=== PATIENT | female | born 1990 | race American Indian/Alaskan Native ===

== ENCOUNTER 2016-06-04 18:44 | Emergency (ER) | payer MEDICAID ==
[2016-06-04 19:14] VITALS: RESP 16; TEMP 98.5
--- NOTE | 2016-06-04 20:14 | ED PDOC ---
Arrival/HPI - General Historian: Patient <Coral Nathan - Last Filed: 06/04/16 22:53> <Angel Johnson - Last Filed: 06/04/16 23:33> - General Chief Complaint: Female Genitourinary Time Seen by Provider: 06/04/16 19:20 - History of Present Illness Narrative History of Present Illness (Text): 06/04/16 20:09 26 year old female, 19 weeks , presents to the emergency department concerned about vaginal mucosal discharge today. Patient explains she is visiting from [place]. Patient reports she had an ultrasound done yesterday which was normal. Denies vaginal bleeding or pain. Denies abdominal pain. no fever/chills. no cp or sob. pt states she called her CHAIN HOOKER and they told to come to the office today but the patient was getting onto an airplane to come to [place] so after she [place] she came to the ER for evaluation. (Coral Nathan) Past Medical History - Provider Review Nursing Documentation Reviewed: Yes - Travel History Have you recently traveled outside w/in the past 3 mons?: No - Infectious Disease Hx of Infectious Diseases: None - Cardiac Hx Cardiac Disorders: No - Pulmonary Hx Asthma: Yes - Neurological Hx Neurological Disorder: No - HEENT Hx HEENT Disorder: No - Renal Hx Renal Disorder: No - Endocrine/Metabolic Hx Endocrine Disorders: No - Hematological/Oncological Hx Blood Disorders: No - Integumentary Hx Dermatological Disorder: No - Musculoskeletal/Rheumatological Hx Musculoskeletal Disorders: No - Gastrointestinal Hx Gastrointestinal Disorders: No - Genitourinary/Gynecological Hx Genitourinary Disorders: No - Psychiatric Hx Psychophysiologic Disorder: No Hx Substance Use: No - Anesthesia Hx Anesthesia: No Hx Anesthesia Reactions: No Hx Malignant Hyperthermia: No <Coral Nathan - Last Filed: 06/04/16 22:53> Family/Social History - Physician Review Nursing Documentation Reviewed: Yes Family/Social History: Unknown Family HX Smoking Status: Never Smoked Hx Alcohol Use: No Hx Substance Use: No <Coral Nathan - Last Filed: 06/04/16 22:53> Allergies/Home Meds <Coral Nathan - Last Filed: 06/04/16 22:53> <Angel Johnson - Last Filed: 06/04/16 23:33> Allergies/Adverse Reactions: Allergies No Known Allergies Allergy (Verified 06/04/16 20:05) Review of Systems - Review of Systems Constitutional: absent: Fatigue, Fevers Eyes: absent: Vision Changes, Eye Pain ENT: absent: Hearing Changes, Sore Throat Respiratory: absent: SOB, Cough Cardiovascular: absent: Chest Pain, Palpitations Gastrointestinal: absent: Abdominal Pain, Constipation, Diarrhea, Nausea, Vomiting Genitourinary Female: Vaginal Discharge (mucosal). absent: Dysuria, Frequency, Hematuria, Vaginal Bleeding Musculoskeletal: absent: Arthralgias, Neck Pain Skin: absent: Rash, Pruritis Neurological: absent: Headache, Dizziness Endocrine: absent: Diaphoresis Hemo/Lymphatic: absent: Easy Bleeding Psychiatric: absent: Depression <Coral Nathan T - Last Filed: 06/04/16 22:53> Physical Exam Vital Signs Reviewed: Yes Temperature: Afebrile Blood Pressure: Normal Pulse: Regular Respiratory Rate: Normal Appearance: Positive for: Well-Appearing, Non-Toxic, Comfortable Pain Distress: None Mental Status: Positive for: Alert and Oriented X 3 - Systems Exam Head: Present: Atraumatic Mouth: Present: Moist Mucous Membranes Neck: Present: Normal Range of Motion Respiratory/Chest: Present: Clear to Auscultation, Good Air Exchange. No: Respiratory Distress, Accessory Muscle Use Cardiovascular: Present: Regular Rate and Rhythm, Normal S1, S2. No: Murmurs Abdomen: Present: Normal Bowel Sounds. No: Tenderness, Distention, Peritoneal Signs Genitourinary/Pelvic Exam: Present: Normal External Genitalia, Vaginal Discharge (minimal white vaginal discharge noted. ), Cervical os Closed, Other ( chaparoned by schuyler hanley [facility]). No: Vaginal Bleeding, Vaginal Lesions, Adenexal Tenderness, Adenexal Mass, Cervical Motion Tendernes, Odor Back: Present: Normal Inspection. No: CVA Tenderness, Midline Tenderness, Paraspinal Tenderness Upper Extremity: Present: Normal ROM Lower Extremity: Present: Normal ROM Neurological: Present: GCS=15, Speech Normal Skin: Present: Warm, Dry, Normal Color. No: Rashes Psychiatric: Present: Alert, Oriented x 3 <Coral Nathan T - Last Filed: 06/04/16 22:53> Vital Signs Temp Pulse Resp BP Pulse Ox 06/04/16 21:44 86 16 105/65 100 06/04/16 20:59 80 16 105/68 100 06/04/16 19:09 98.5 F 87 16 100/62 99 Medical Decision Making <Coral Nathan - Last Filed: 06/04/16 22:53> <Angel Johnson - Last Filed: 06/04/16 23:33> ED Course and Treatment: 06/04/16 23:22 Patient is nontoxic well appearing in no distress. Vital signs are stable, patient complaining of vaginal discharge denies pain. Patient 19 weeks CBC: Wbc:11.6 CMP: wnl Beta hC pt refused additional blood testing for type and screen; there is no vaginal bleeding noted on examination; pt has not had any vaginal bleeding during this . Urinalysis: wnl Ultrasound: FINDINGS: Fetus: Single live intrauterine gestation. Heart rate: heart rate of 158 beats per minute. Presentation: Cephalic. Placenta: Posterior. No placental abruption. Amniotic fluid: Normal. Anatomy: No gross anomaly is appreciated. BIOMETRICS Gestational age by US: Estimated gestational age of 19 weeks 5 days by measurements. EFW: Estimated weight of 306 g. BPD: 4.5 cm, correlating with 19 weeks 4 days. HC: 17.1 cm, correlating with 19 weeks 5 days. AC: 14.3 cm, correlating with 19 weeks 5 days. FL: 3.1 cm, correlating with 19 weeks 5 days. MATERNAL: Uterus: Unremarkable. No myometrial mass. Cervix: No cervical dilatation or effacement. Free fluid: No free fluid. IMPRESSION: 1. Single live intrauterine gestation. 2. Incidental/non-acute findings are described above. Discussed all the results the patient. advised f/u with the router operator within the next 2 days. advised immediate return if symptoms worsen,persist or if new symptoms develop. Impression: vaginal discharge Followup with the accounting representative within the next 2 days Return immediately if symptoms worsen persist or if new symptoms develop: High fevers, heavy bleeding, severe abdominal pain, vomiting, diarrhea, dizziness or weakness or any other concerning symptoms develop. (Coral Nathan) - Lab Interpretations Lab Results: 06/04/16 20:00 06/04/16 20:00 Lab Results 06/04/16 20:00: WBC 11.6 H, RBC 4.04, Hgb 11.2 L, Hct 33.7 L, MCV 83.4, MCH 27.7 , MCHC 33.2, RDW 15.0 H, Plt Count 219, MPV 11.5 H, Gran % 73.4 H, Lymph % (Auto ) 17.9 L, Posey % (Auto) 7.7 H, Eos % (Auto) 0.9 L, Baso % (Auto) 0.1, Gran # 8.55 H, Lymph # 2.1, Posey # 0.9 H, Eos # 0.1, Baso # 0.01, Sodium 135, Potassium 3.4 L, Chloride 102, Carbon Dioxide 24, Anion Gap 12, BUN 8, Creatinine 0.8, Est GFR ( Amer) > 60, Est GFR (Non-Af Amer) > 60, Random Glucose 72, Calcium 8.9, Total Bilirubin 0.4, AST 35, ALT 14, Alkaline Phosphatase 57, Total Protein 7.1, Albumin 3.6, Globulin 3.5, Albumin/Globulin Ratio 1.0 L, Beta HCG, Quant 66845.00 H, Urine Color Yellow, Urine Appearance Clear, Urine pH 6.0, Ur Specific [place] 1.010, Urine Protein Negative, Urine Glucose (UA) Negative, Urine Ketones Negative, Urine Blood Negative, Urine Nitrate Negative, Urine Bilirubin Negative, Urine Urobilinogen 0.2, Ur Leukocyte Esterase Negative - RAD Interpretation Radiology Orders: 06/04/16 20:10 AGE [US] Stat - Scribe Statement The provider has reviewed the documentation as recorded by the Scribe <Coral Nathan - Last Filed: 06/04/16 22:53> - PA / RESIDENTIAL LEASING AGENT / Resident Statement / has reviewed & agrees with the documentation as recorded. <Angel Johnson - Last Filed: 06/04/16 23:33> - Scribe Statement Augusto Woods Provider Scribe Attestation: All medical record entries made by the Scribe were at my direction and personally dictated by me. I have reviewed the chart and agree that the record accurately reflects my personal performance of the history, physical exam, medical decision making, and the department course for this patient. I have also personally directed, reviewed, and agree with the discharge instructions and disposition. (Coral Nathan) Disposition/Present on Arrival - Present on Arrival Any Indicators Present on Arrival: No History of DVT/PE: No History of Uncontrolled Diabetes: No Urinary Catheter: No History of Decub. Ulcer: No History Surgical Site Infection Following: None - Disposition Have Diagnosis and Disposition been Completed?: Yes Disposition Time: 22:53 Patient Plan: Discharge <Coral Nathan - Last Filed: 06/04/16 22:53> <Angel Johnson - Last Filed: 06/04/16 23:33> - Disposition Diagnosis: Vaginal discharge during Disposition: HOME/ ROUTINE Patient Problems: Current Active Problems Problem Status Diagnosed Vaginal discharge during Acute Condition: GOOD Additional Instructions: Follow up with the greens picker within the next 2 days Return if symptoms worsen persist or if new concerning symptoms develop Continue your vitamins daily. Referrals: Francisco Funk [Medical Doctor] - Follow up with primary
[2016-06-04 20:25] LABS: ADD MANUAL DIFF? NO
[2016-06-04 20:57] LABS: ALKALINE PHOSPHATASE 57 U/L (38-133); ALT/SGPT 14 U/L (7-56); AST/SGOT 35 U/L (15-39); BILIRUBIN,TOTAL 0.4 mg/dL (0.2-1.3); BLOOD UREA NITROGEN 8 mg/dL (7-21); CALCIUM 8.9 mg/dL (8.4-10.5); CARBON DIOXIDE 24 mmol/L (21-33); CHLORIDE 102 mmol/L (98-107); GFR AFRICAN-AMERICAN > 60; GLUCOSE,RANDOM 72 mg/dL (70-110); POTASSIUM 3.4 mmol/L (3.6-5.0); SODIUM 135 mmol/L (132-148); TOTAL PROTEIN 7.1 g/dL (5.8-8.3); URINE BILIRUBIN NEGATIVE (NEGATIVE); URINE BLOOD NEGATIVE (NEGATIVE); URINE GLUCOSE (UA) NEGATIVE (NEGATIVE); URINE KETONE NEGATIVE (NEGATIVE); URINE LEUKOCYTE ESTERASE NEGATIVE Leu/uL (NEGATIVE); URINE PROTEIN NEGATIVE mg/dL (<30 mg/dL); URINE UROBILINOGEN 0.2 E.U./dL (<1 E.U./dL)
[2016-06-04 20:59] VITALS: O2SAT 100
[2016-06-04 21:01] LABS: BASO # 0.01 K/mm3 (0.0-2.0); BASO % 0.1 % (0.0-3.0); EOS # 0.1 (0.0-0.7); EOS % 0.9 % (1.5-5.0); GRAN # 8.55 (1.4-6.5); GRAN % 73.4 % (50.0-68.0); HEMATOCRIT 33.7 % (36.0-48.0); LYMPH # 2.1 (1.2-3.4); LYMPH % 17.9 % (22.0-35.0); MEAN CELL VOLUME 83.4 fL (80.0-105.0); MEAN CORPUSCULAR HEMOGLOBIN 27.7 pg (25.0-35.0); MEAN CORPUSCULAR HGB CONC 33.2 g/dl (31.0-37.0); MEAN PLATELET VOLUME 11.5 fl (7.0-11.0); MONO # 0.9 (0.1-0.6); MONO % 7.7 % (1.0-6.0); PLATELET COUNT 219 10^3/uL (120.0-450.0); WHITE BLOOD COUNT 11.6 10^3/ul (4.5-11.0)
[2016-06-04 21:02] LABS: URINE APPEARANCE CLEAR (CLEAR); URINE COLOR YELLOW (YELLOW)
--- NOTE | 2016-06-04 21:22 | US ---
EXAM: US After First Trimester, Transabdominal CLINICAL HISTORY: 26 years old, female; Pain; complicated by abdominal or pelvic pain; Right lower quadrant; Second trimester; Gestational age or lmp: 01/22/2016; ; Additional info: , vaginal discharge today TECHNIQUE: Real-time transabdominal obstetrical ultrasound of the maternal pelvis and a second or third trimester with image documentation. COMPARISON: No relevant prior studies available. FINDINGS: Fetus: Single live intrauterine gestation. Heart rate: heart rate of 158 beats per minute. Presentation: Cephalic. Placenta: Posterior. No placental abruption. Amniotic fluid: Normal. Anatomy: No gross anomaly is appreciated. BIOMETRICS Gestational age by US: Estimated gestational age of 19 weeks 5 days by measurements. EFW: Estimated weight of 306 g. BPD: 4.5 cm, correlating with 19 weeks 4 days. HC: 17.1 cm, correlating with 19 weeks 5 days. AC: 14.3 cm, correlating with 19 weeks 5 days. FL: 3.1 cm, correlating with 19 weeks 5 days. MATERNAL: Uterus: Unremarkable. No myometrial mass. Cervix: No cervical dilatation or effacement. Free fluid: No free fluid. IMPRESSION: 1. Single live intrauterine gestation. 2. Incidental/non-acute findings are described above.
[2016-06-04 21:44] VITALS: BP 105/65; PULSE 86
== END 2016-06-04 23:54 | disposition home or self-care (01) ==
LOC: ED 18:44
DX: O26.892 Other specified pregnancy related conditions, second trimester (principal); N89.8 Other specified noninflammatory disorders of vagina; Z3A.19 19 weeks gestation of pregnancy